=== PATIENT | female | born 1990 | race Two or more races ===

== ENCOUNTER 2020-04-08 15:47 | Outpatient (REF) | payer OTHER, SELFPAY | END 2020-04-08 15:48 | disposition home or self-care (01) | LOC: HO.LAB 15:47 | PROVIDERS: Visit Provider Internal Medicine | DX: Z20.828 Contact with and (suspected) exposure to other viral communicable diseases (principal) | CPT/HCPCS: C9803; U0003 ==

== ENCOUNTER 2020-06-04 11:58 | Outpatient (REF) | payer OTHER, SELFPAY ==
[2020-06-04 13:59] LABS: Alanine Aminotransferase 22 U/L (0-31); Albumin Level 4.2 g/dL (3.5-5.0); Alkaline Phosphatase 61 U/L (39-117); Anion Gap 14 (12-20); Aspartate Amino Transferase 21 U/L (5-31); Bilirubin Total 0.4 mg/dL (0.0-1.0); Blood Urea Nitrogen 9 mg/dL (9-16); Calcium 8.8 mg/dL (8.4-10.2); Carbon Dioxide 25 mmol/L (22-29); Chloride 105 mmol/L (96-108); Cholesterol 159 mg/dL; Estimated Glomerular Filt Rate > 60; Glucose Fasting 81 mg/dL (60-99); HDL Cholesterol 42 mg/dL; LDL Cholesterol Calculated 103 mg/dl; Potassium 4.7 mmol/l (3.3-5.1); Sodium 139 mmol/L (135-145); Triglycerides 71 mg/dL
[2020-06-04 14:19] LABS: TSH reflex Free T4 1.17 mIU/mL (0.32-4.0)
== END 2020-06-04 11:59 | disposition home or self-care (01) ==
LOC: HO.WFDLDS 11:58
PROVIDERS: Visit Provider Family Medicine
DX: Z00.00 Encounter for general adult medical examination without abnormal findings (principal)
CPT/HCPCS: 36415; 80053; 80061; 84443

== ENCOUNTER 2020-06-16 10:48 | Outpatient (RCR) | payer OTHER, SELFPAY | END 2020-07-10 08:34 | disposition other institution (70) | LOC: HO.PTWFD 10:48 | PROVIDERS: PCP Family Medicine; Visit Provider Family Medicine | DX: M54.9 Dorsalgia, unspecified (principal) | CPT/HCPCS: 97110; 97161 ==

== ENCOUNTER 2021-07-15 09:54 | Outpatient (REF) | payer OTHER, SELFPAY | END 2021-07-15 09:55 | disposition home or self-care (01) | LOC: HO.LAB 09:54 | PROVIDERS: PCP Family Medicine; Visit Provider Family Medicine | DX: Z30.09 Encounter for other general counseling and advice on contraception (principal) | CPT/HCPCS: 36415; 84702 ==